=== PATIENT | male | born 1945 | race Caucasian/White ===

== ENCOUNTER 2017-05-02 10:40 | Emergency (ER) | payer OTHER ==
[2017-05-02 11:31] LABS: Absolute Lymphocytes (CBC) 2.2 K/uL (0.7-4.9); Absolute Monocytes 1.1 K/uL (0.1-1.3); Absolute Neutrophil 4.5 K/uL (1.8-8.0); Basophils % 0.8 % (0-1.3); Eosinophils % 3.1 % (0-4.4); Hematocrit 47.5 % (39.6-49.0); Lymphocytes % 27.3 % (15.3-44.8); MCH 31.6 pg (27.0-35.0); MCV 95.6 fL (80-100); MPV 8.5 fL (7.6-11.3); Monocytes % 13.2 % (3.3-12.3); RBC Red Blood Cell Count 4.97 M/uL (4.33-5.43)
[2017-05-02] MEDS ORDERED: METOPROLOL TARTRATE 5 MG/5 ML INJ IV ONE (11:38)
[2017-05-02] MEDS ORDERED: METOPROLOL TAR 25 MG TAB ONE (11:38)
[2017-05-02 11:39] LABS: BUN Blood Urea Nitrogen 18 mg/dL (6-20); Bicarbonate 25 mEq/L (21-31); Glomerular Filtration Rate > 90 mL/min (=/>90); Glucose Level 103 mg/dL (65-120); Potassium 4.2 mEq/L (3.6-5.0); Sodium Level 138 mEq/L (135-145)
[2017-05-02 11:43] LABS: Protime INR 0.97
--- NOTE | 2017-05-02 11:56 | RAD REPORT ---
EXAM DESCRIPTION: Ninfa Single View05/02/2017 11:25 am CLINICAL HISTORY: Shortness of breath COMPARISON: none FINDINGS: The lungs appear clear of acute infiltrate. The heart is normal size IMPRESSION: No acute abnormalities displayed
--- NOTE | 2017-05-02 12:51 | EDPHYS ---
Physician Documentation [facility] Name: Dav Baum Age: 72 yrs Sex: Male : 1945 Arrival Date: 05/02/2017 Time: 10:43 Bed 2 Private MD: ED Physician Marcelo Celis HPI: 05/02 11:13 This 72 yrs old Male presents to ER via Ambulatory with complaints of rn Abnormal EKG. 11:13 The patient presents with a history of irregular heart beat, heart racing. Context: The rn symptoms occur at rest. Onset: The symptoms/episode began/occurred last night. Modifying factors: The symptoms are aggravated by nothing. The symptoms are alleviated by nothing. Severity of symptoms: At their worst the symptoms were moderate in the emergency department the symptoms are unchanged. The patient has experienced similar episodes in the past. Reports hx of chronic afib, states last night began with palpitations and lightheaded, similar to previous episodes, states 1 year ago dropped from 300 flecainide to 200 flecainide, takes metoprolol as well, since the drop has had more problems, has required cardioversion and ablation in past. Mild sob and lightheaded. . Historical: - Allergies: 10:53 No Known Allergies; lk1 - PMHx: 10:53 Atrial Fib; Osteoporosis; Depression; GERD; ingunial hernia; Hyperlipidemia; PTSD; lk1 suicidal ideations; - PSHx: 10:53 Hernia repair; ablation; lk1 - Immunization history:: Adult Immunizations up to date. - Social history:: Smoking status: Patient/guardian denies using tobacco. - Family history:: not pertinent. - Hospitalizations: : No recent hospitalization is reported. ROS: 11:13 Constitutional: Negative for fever, chills, and weight loss, Eyes: Negative for injury, rn pain, redness, and discharge, Neck: Negative for injury, pain, and swelling, Cardiovascular: Negative for chest pain, and edema, Respiratory: Negative for cough, wheezing, and pleuritic chest pain, Abdomen/GI: Negative for abdominal pain, nausea, vomiting, diarrhea, and constipation, Back: Negative for injury and pain, MS/Extremity: Negative for injury and deformity, Skin: Negative for injury, rash, and discoloration, Neuro: Negative for headache, weakness, numbness, tingling, and seizure. Exam: 11:13 Constitutional: This is a well developed, well nourished patient who is awake, alert, rn and in no acute distress. Head/Face: Normocephalic, atraumatic. Eyes: Pupils equal round and reactive to light, extra-ocular motions intact. Lids and lashes normal. Conjunctiva and sclera are non-icteric and not injected. Cornea within normal limits. Periorbital areas with no swelling, redness, or edema. Neck: Trachea midline, no thyromegaly or masses palpated, and no cervical lymphadenopathy. Supple, full range of motion without nuchal rigidity, or vertebral point tenderness. No Meningismus. Cardiovascular: tachycardic, irregular, no murmur Respiratory: Lungs have equal breath sounds bilaterally, clear to auscultation and percussion. No rales, rhonchi or wheezes noted. No increased work of breathing, no retractions or nasal flaring. Abdomen/GI: Soft, non-tender, with normal bowel sounds. No distension or tympany. No guarding or rebound. No evidence of tenderness throughout. MS/ Extremity: Pulses equal, no cyanosis. Neurovascular intact. Full, normal range of motion. Equal circumference. Neuro: Awake and alert, GCS 15, oriented to person, place, time, and situation. Cranial nerves II-XII grossly intact. Motor strength 5/5 in all extremities. Sensory grossly intact. Cerebellar exam normal. Normal gait. 11:23 ECG was reviewed by the Attending Physician. rn Vital Signs: 10:53 BP 124 / 86; Pulse 98; Resp 15; Temp 97.0(TE); Pulse Ox 99% on R/A; Weight 70.31 kg; lk1 Height 5 ft. 6 in. (167.64 cm) (R); Pain 0/10; 11:25 BP 112 / 95; Pulse 156; Resp 16; Pulse Ox 97% on R/A; mh5 11:37 BP 121 / 84; Pulse 159; Resp 16 S; Pulse Ox 100% on R/A; jl7 11:45 BP 114 / 61; Pulse 108; Resp 16 S; Pulse Ox 100% on R/A; jl7 11:50 BP 125 / 91; Pulse 153; Resp 16 S; Pulse Ox 99% on R/A; jl7 11:55 BP 119 / 75; Pulse 96; Resp 16 S; Pulse Ox 99% on R/A; jl7 12:00 BP 114 / 80; Pulse 60; Resp 16 S; Pulse Ox 99% on R/A; jl7 12:05 BP 117 / 84; Pulse 62; Resp 16 S; Pulse Ox 100% on R/A; jl7 12:15 BP 110 / 83; Pulse 64; Resp 16 S; Pulse Ox 99% on R/A; jl7 12:45 BP 108 / 78; Pulse 58; Resp 16 S; Pulse Ox 99% on R/A; jl7 13:15 BP 113 / 83; Pulse 56; Resp 16 S; Pulse Ox 99% on R/A; jl7 13:25 BP 114 / 80; Pulse 62; jl7 10:53 Body Mass Index 25.02 (70.31 kg, 167.64 cm) lk1 MDM: 11:02 Patient medically screened. rn 12:02 ED course: Pt now in sinus. . rn 12:49 Differential diagnosis: arrythmia, dehydration, stress disorder. Data reviewed: vital rn signs, nurses notes, lab test result(s), EKG, radiologic studies, plain films, and as a result, I will discharge patient. Counseling: I had a detailed discussion with the patient and/or guardian regarding: the historical points, exam findings, and any diagnostic results supporting the discharge/admit diagnosis, lab results, radiology results, the need for outpatient follow up, to return to the emergency department if symptoms worsen or persist or if there are any questions or concerns that arise at home. Special discussion: I discussed with the patient/guardian in detail that at this point there is no indication for admission to the hospital. It is understood, however, that if the symptoms persist or worsen the patient needs to return immediately for re-evaluation. ED course: Pt back to baseline, asymptomatic, now in sinus rhythm, known paroxysmal Afib, will dc with cardiology f/u. . 05/02 11:09 Order name: CBC with Diff; Complete Time: 12:00 rn 05/02 11:09 Order name: Basic Metabolic Panel; Complete Time: 12: rn 05/02 11:09 Order name: Protime (+inr); Complete Time: 12:00 rn 05/02 11:09 Order name: Ptt, Activated; Complete Time: 12:05/02 11:09 Order name: Troponin (emerg Dept Use Only); Complete Time: 12:00 rn 05/02 11:09 Order name: BNP; Complete Time: 12:13 rn 05/02 11:09 Order name: IV Start; Complete Time: 11: rn 05/02 11:09 Order name: EKG; Complete Time: 11:10 rn 05/02 11:09 Order name: EKG - Nurse/Tech; Complete Time: 11: rn 05/02 11:09 Order name: XRAY Chest (1 view); Complete Time: 12:00 rn EC:23 Rate is 165 beats/min. Rhythm is irregularly irregular. Left axis deviation noted. QRS rn is positive in lead I and negative in lead aVF. NH interval is normal. QRS interval is normal. QT interval is normal. No Q waves. T waves are Normal. ST Segment is depressed in leads V5, V6, <1mm. Clinical impression: Atrial Fibrillation. Interpreted by me. Administered Medications: 11: Drug: Metoprolol 25 mg Route: PO; 13:26 Follow up: Response: No adverse reaction [facility] 11:31 Not Given (held per MD order): Metoprolol 5 mg IVP once; Hold for SBP <100 or HR <60. 11:37 Drug: Metoprolol 5 mg Route: IVP; Site: right forearm; jl7 11:48 Drug: Metoprolol 5 mg Route: IVP; Site: right forearm; jl7 13:25 Follow up: BP 114 / 80; Pulse 62 bpm; Response: Marked relief of symptoms jl7 Disposition: 05/02/17 12:50 Discharged to Home. Impression: Paroxysmal atrial fibrillation. - Condition is Stable. - Discharge Instructions: Atrial Fibrillation. - Medication Reconciliation Form, Thank You Letter, Antibiotic Education, Prescription Opioid Use form. - Follow up: Private Physician; When: As needed; Reason: Recheck today's complaints, Re-evaluation by your physician. - Problem is new. - Symptoms have improved. Signatures: Dispatcher [employer] EDMarcelo Kyle MD MD rn Joaquin, Henry RN ROSA ISELA Alia Rosen RN RN lk1 Kee Peng RN RN jl7
--- NOTE | 2017-05-02 12:51 | ER ---
Nurse's Notes [facility] Name: Dav Baum Age: 72 yrs Sex: Male : 1945 Arrival Date: 05/02/2017 Time: 10:43 Bed 2 Private MD: Diagnosis: Paroxysmal atrial fibrillation Presentation: 05/02 10:49 Presenting complaint: Patient states: "I got my EKG done at the [facility] and I was told to lk1 come here to have it checked. It shows atrial fibrillation. I had an ablation done about 16 years ago. They changed my medicines a year ago. I was feeling bad this morning, like flushed in my face and they found this on my EKG". Transition of care: patient was not received from another setting of care. Onset of symptoms was May 02, 2017 at 09:00. Care prior to arrival: None. 10:49 Method Of Arrival: Ambulatory lk1 10:49 Acuity: NACHO 3 lk1 Triage Assessment: 10:53 General: Appears in no apparent distress. Behavior is calm, cooperative, appropriate lk1 for age. Pain: Denies pain. Cardiovascular: Capillary refill is brisk Patient's skin is warm and dry. Historical: - Allergies: 10:53 No Known Allergies; lk1 - PMHx: 10:53 Atrial Fib; Osteoporosis; Depression; GERD; ingunial hernia; Hyperlipidemia; PTSD; lk1 suicidal ideations; - PSHx: 10:53 Hernia repair; ablation; lk1 - Immunization history:: Adult Immunizations up to date. - Social history:: Smoking status: Patient/guardian denies using tobacco. - Family history:: not pertinent. - Hospitalizations: : No recent hospitalization is reported. Screenin:34 Abuse screen: Denies threats or abuse. Denies injuries from another. Nutritional hj screening: No deficits noted. Tuberculosis screening: No symptoms or risk factors identified. Fall Risk None identified. Assessment: 11:33 Reassessment: BP was 99/78; 102/65; MD informed; MD with order to hold metoprolol IV; hj and to move pt to trauma bay; pt was transferred via stretcher, A\\T\\O x4; consent signed for possible cardioversion;. 11:45 General: Appears in no apparent distress. comfortable, Behavior is calm, cooperative, jl7 appropriate for age. Pain: Denies pain. Neuro: Level of Consciousness is awake, alert, obeys commands, Oriented to person, place, time, situation. Cardiovascular: Reports lightheadedness, palpitations, Denies chest pain, Heart tones present Patient's skin is warm and dry. Rhythm is atrial fibrillation. Respiratory: Airway is patent Respiratory effort is even, unlabored, Respiratory pattern is regular, symmetrical, Breath sounds are clear bilaterally. GI: No signs and/or symptoms were reported involving the gastrointestinal system. Patient currently denies diarrhea, nausea, vomiting. : No signs and/or symptoms were reported regarding the genitourinary system. EENT: No signs and/or symptoms were reported regarding the EENT system. Derm: Skin is pink, warm \\T\\ dry. Musculoskeletal: No signs and/or symptoms reported regarding the musculoskeletal system. 12:05 Reassessment: EKG at bedside. jl7 13:00 Reassessment: No changes from previously documented assessment. Patient and/or family jl7 updated on plan of care and expected duration. Pain level reassessed. Patient is alert, oriented x 3, equal unlabored respirations, skin warm/dry/pink. Patient states feeling better. Vital Signs: 10:53 BP 124 / 86; Pulse 98; Resp 15; Temp 97.0(TE); Pulse Ox 99% on R/A; Weight 70.31 kg; lk1 Height 5 ft. 6 in. (167.64 cm) (R); Pain 0/10; 11:25 BP 112 / 95; Pulse 156; Resp 16; Pulse Ox 97% on R/A; mh5 11:37 BP 121 / 84; Pulse 159; Resp 16 S; Pulse Ox 100% on R/A; jl7 11:45 BP 114 / 61; Pulse 108; Resp 16 S; Pulse Ox 100% on R/A; jl7 11:50 BP 125 / 91; Pulse 153; Resp 16 S; Pulse Ox 99% on R/A; jl7 11:55 BP 119 / 75; Pulse 96; Resp 16 S; Pulse Ox 99% on R/A; jl7 12:00 BP 114 / 80; Pulse 60; Resp 16 S; Pulse Ox 99% on R/A; jl7 12:05 BP 117 / 84; Pulse 62; Resp 16 S; Pulse Ox 100% on R/A; jl7 12:15 BP 110 / 83; Pulse 64; Resp 16 S; Pulse Ox 99% on R/A; jl7 12:45 BP 108 / 78; Pulse 58; Resp 16 S; Pulse Ox 99% on R/A; jl7 13:15 BP 113 / 83; Pulse 56; Resp 16 S; Pulse Ox 99% on R/A; jl7 13:25 BP 114 / 80; Pulse 62; jl7 10:53 Body Mass Index 25.02 (70.31 kg, 167.64 cm) lk1 ED Course: 10:43 Patient arrived in ED. mr 10:51 Triage completed. lk1 10:56 Arm band placed on right wrist. lk1 10:59 Marcelo Celis MD is Attending Physician. rn 11:12 Initial lab(s) drawn, by nm, sent to lab. Inserted saline lock: 22 gauge in right hj forearm, using aseptic technique. Blood collected. 11:19 EKG done, by processing technician. reviewed by Marcelo Celis MD. at1 11:26 XRAY Chest (1 view) In Process Unspecified. EDMS 11:31 Kee Peng RN is Primary Nurse. jl7 11:34 Patient has correct armband on for positive identification. Placed in gown. Bed in low hj position. Call light in reach. Side rails up X 1. 11:45 bus driver/monitor on. Pulse ox on. NIBP on. jl7 12:29 EKG done, by processing technician. reviewed by Marcelo Celis MD. tc 13:20 No provider procedures requiring assistance completed. IV discontinued, intact, jl7 bleeding controlled, No redness/swelling at site. Pressure dressing applied. Administered Medications: 11:12 Drug: Metoprolol 25 mg Route: PO; hj 13:26 Follow up: Response: No adverse reaction jl7 11:31 Not Given (held per MD order): Metoprolol 5 mg IVP once; Hold for SBP <100 or HR <60. hj 11:37 Drug: Metoprolol 5 mg Route: IVP; Site: right forearm; jl7 11:48 Drug: Metoprolol 5 mg Route: IVP; Site: right forearm; jl7 13:25 Follow up: BP 114 / 80; Pulse 62 bpm; Response: Marked relief of symptoms jl7 Outcome: 12:50 Discharge ordered by . rn 13:20 Discharged to home ambulatory. jl7 13:20 Condition: stable 13:20 Discharge instructions given to patient, Instructed on discharge instructions, follow up and referral plans. Demonstrated understanding of instructions, follow-up care. 13:21 Patient left the ED. jl7 Signatures: Dispatcher [employer] EDPao McgowanMarcelo MD MD rn Joyce mukherjee, vocational rehabilitation supervisor EKG Tat1 Sharifa Espitia, vocational rehabilitation supervisor EKG Ttc Rafa Desouza, RN Alia Washington RN RN edith1 Pao Cason [facility] Kee Peng RN RN jl7 Corrections: (The following items were deleted from the chart) 13:22 12:30 Discharged to home ambulatory, jl7 jl7 13:22 12:30 Condition: stable jl7 jl7 13:22 12:30 Discharge instructions given to patient, Instructed on discharge instructions, jl7 follow up and referral plans. Demonstrated understanding of instructions, follow-up care, jl7
--- NOTE | 2017-05-02 16:27 | EKG ---
Test Date: 2017-05-02 Test Time: 12:06:13 Engraver [employer]: LIUDMILA MEASUREMENT RESULTS: Intervals: Rate: 61 IN: 162 QRSD: 84 QT: 430 QTc: 432 [place]: P: 59 IN: 162 QRS: -12 T: 12 INTERPRETIVE STATEMENTS: Normal sinus rhythm Nonspecific ST abnormality Abnormal ECG No previous ECG available for comparison Electronically Signed On 05-02-17 16:24:35 CDT by Jacob Panda
--- NOTE | 2017-05-02 16:27 | EKG ---
Test Date: 2017-05-02 Test Time: 11:16:21 Hemodialysis Technician: SHARON MEASUREMENT RESULTS: Intervals: Rate: 165 PA: QRSD: 112 QT: 308 QTc: 510 [place]: P: PA: QRS: -47 T: 118 INTERPRETIVE STATEMENTS: Atrial fibrillation with rapid ventricular response Left anterior fascicular block Moderate voltage criteria for LVH, may be normal variant Marked ST abnormality, possible lateral subendocardial injury Abnormal ECG No previous ECG available for comparison Electronically Signed On 05-02-17 16:24:36 CDT by Jacob Panda
== END 2017-05-02 13:21 | disposition home or self-care (01) ==
LOC: ER 10:40
DX: I48.0 Paroxysmal atrial fibrillation
CPT/HCPCS: 36415; 71045; 80048; 83880; 84484; 85025; 85610; 85730; 93005; 96374; 99285